=== PATIENT | male | born 1955 | race Caucasian/White ===

== ENCOUNTER 2016-05-25 13:34 | Outpatient (RCR) | payer BC | END 2016-08-23 | disposition home or self-care (01) | LOC: DT 13:34 | PROVIDERS: ATTEND Physician Assistant | DX: E11.65 Type 2 diabetes mellitus with hyperglycemia (principal); E66.9 Obesity, unspecified; Z68.31 Body mass index [BMI] 31.0-31.9, adult; Z71.3 Dietary counseling and surveillance | CPT/HCPCS: 97802 ==